=== PATIENT | male | born 1935 | race Caucasian/White ===

== ENCOUNTER 2019-01-07 11:28 | Outpatient (CLI) | payer MEDICARE ==
[~2019-01-07] VITALS: Ht 162.6 cm; Wt 69.4 kg
--- NOTE | ~2019-01-07 | HEMODYNAMI ---
PATIENT:KEIRY SULLIVAN MEDICAL RECORD: [id number] : 31 LOCATION:[facility] D.2125 ADMISSION DATE: 01/07/19 Generatedon:01/08/201914:01 Patient name: KEIRY SULLIVAN Patient #: [id number] SSN: : 1935 Date of study: 01/08/2019 Page: Of Hemodynamic Procedure Report Patient Data Patient Demographics Procedure consent was obtained First Name: KEIRY Gender: Male Last Name: LAURIE : 1935 Patient #: [id number] Age: 83 year(s) Race: Additional ID: [id number] Contact details Address: [address] [place] [address] State: [facility] Zip code: [address] Past Medical History Allergies Allergen Reaction Date Comments Reported Other allergy 01/08/2019 allergy medicines Admission Admission Data Admission Date: 01/07/2019 Admission Time: 11:28 Arrival Date: 01/08/2019 Arrival Time: 11:28 Admit Source: Emergency Insurance Payor: Medicare department [facility] #: [id number] Room #: D.2125 Height (in.): 64.17 BSA: 1.78 (m2) Height (cm.): 163 BMI: 27.1 (kg/m2) Weight (lbs.): 158.73 Weight (kg.): 72 Lab Results Lab Result Date: 01/08/2019 Lab Result Time: 0:00 Biochemistry Name Units Result Min Max BUN mg/dl 26 --(----)-* 7 18 Creatinine mg/dl 1.3 --(---*)-- 0.6 1.3 eGFR ml/min 56 *-(----)-- 90 120 NONAFRICAN CBC Name Units Result Min Max Hemoglobin g/dl 15 --(-*--)-- 13.5 17.5 Procedure Procedure Types Cath Procedure Diagnostic Procedure LHC LHC w/Coronaries Sedation Charges Moderate Sedation up to 30 minutes PCI Procedure Coronary Stent Coronary Stent Initial x2 Procedure Description Procedure Date Procedure Date: 01/08/2019 Procedure Start Time: 13:26 Procedure End Time: 13:53 Procedure Staff Name Function Lars Clarke MD Performing Physician Carito Rangel RT Monitor Azam Poole RN Nurse Ashley Montoya RT Scrub Procedure Data Cath Procedure Fluoroscopy Diagnostic fluoroscopy Total fluoroscopy Time: 10 time: 10 min min Diagnostic fluoroscopy Total fluoroscopy dose: dose: 1557 mGy 1557 mGy Contrast Material Contrast Material Type Amount (ml) Isovue 300 155 Entry Location Entry Primary Successful Side Size Upsize Upsize Entry Closure Chambers ccessful Closure Location (Fr) 1 (Fr) 2 (Fr) Remarks Device Remarks Radial Right 6 Fr Mechanical artery Short Compression Estimated blood loss: 5 ml Diagnostic catheters Device Type Used For End Catheter Placement DIAGNOSTIC Caulfield 110cm 5 Multi-vessel Fr catheter ([id number]) Angiography Procedure Complications No complications Procedure Medications Medication Administration Route Dosage Oxygen etCO2 Nasal cannula 2 l/min Lidocaine 2% added to field 20 Heparin Flush Bag added to field 2 bags (1000units/500ml NS) 0.9% NaCl I.V. 100 ml/hr Versed I.V. 1 mg Fentanyl I.V. 50 mcg Heparin Bolus I.V. 4000 units Versed I.V. 1 mg Fentanyl I.V. 50 mcg Hemodynamics Rest BSA: 1.78 (m2) O2 Consumption: Estimated: 207.49 (ml/min) O2 Consumption indexed : Estimated:116.57 (ml/min/m) Heart Rate: 78 (bpm) Snapshots Pre Cath Intra NCS Post Cath Vital Signs Time Heart Resp SPO2 etCO2 NIBP (mmHg) Rhythm Pain Sedation Rate (ipm) (%) (mmHg) Status Level (bpm) 12:57:13 76 21 94 0 139/80(108) NSR 0 (11) 10(A) , No pain 13:01:18 72 17 96 0 134/78(110) NSR 0 (11) 10(A) , No pain 13:05:22 73 18 96 0 136/82(104) NSR 0 (11) 10(A) , No pain 13:09:26 79 12 96 0 141/81(110) NSR 0 (11) 10(A) , No pain 13:13:30 72 14 98 0 146/85(119) NSR 0 (11) 10(A) , No pain 13:17:40 78 16 99 0 145/74(102) NSR 0 (11) 10(A) , No pain 13:21:47 74 15 99 0 151/78(122) NSR 0 (11) 10(A) , No pain 13:25:55 82 15 100 0 151/86(114) NSR 0 (11) 10(A) , No pain 13:30:07 83 15 94 0 121/76(95) NSR 0 (11) 9(A) , No pain 13:34:09 78 12 97 0 128/75(99) NSR 0 (11) 9(A) , No pain 13:38:13 73 14 95 0 135/71(100) NSR 0 (11) 9(A) , No pain 13:42:20 75 14 97 0 132/67(108) NSR 0 (11) 9(A) , No pain 13:46:26 76 13 97 0 132/72(100) NSR 0 (11) 9(A) , No pain 13:50:30 74 17 98 0 143/75(107) NSR 0 (11) 10(A) , No pain Medications Time Medication Route Dose Verified Delivered Reason Notes Effectiveness by by 12:56:17 Oxygen etCO2 2 Lars Buffie used for Nasal l/min Vince Poole RN procedure cannula 12:56:24 Lidocaine 2% added 20ml Lars Lars for local to vial Vince Clarke MD anesthetic field 12:56:30 Heparin Flush added 2 Lars Lars used for Bag to bags Vince Clarke MD procedure (1000units/500ml field NS) 12:56:39 0.9% NaCl I.V. 100 Lars Buffie Per physician ml/hr Vince Poole RN 13:24:34 Versed I.V. 1 mg Lars Buffie for sedation Vince Poole RN 13:24:39 Fentanyl I.V. 50 Lars Buffie for sedation mcg Vince Poole RN 13:29:54 Versed I.V. 1 mg Lars Buffie for sedation Vince Poole RN 13:29:58 Fentanyl I.V. 50 Lars Buffie for sedation mcg Vince Poole RN 13:32:45 Heparin Bolus I.V. 4000 Lars Buffie for verif ied units Vince Poole RN anticoagulation with dr clarke Procedure Log Time Note 12:48:42 Procedure Status Urgent Heart Cath (IP). 12:48:47 Ashley Montoya RT(R) sent for patient. Start room use. 12:48:48 Time tracking: Regular hours (M-F 7:00 - 5:00) 12:48:54 Plan of Care:Hemodynamics will remain stable., Cardiac rhythm will remain stable., Comfort level will be maintained., Respiratory function will remain adequate., Patient/ family verbilizes understanding of procedure., Procedure tolerated without complication., Recovers from procedure without complications.. 12:49:01 Patient received from Med II to CCL 2 Alert and oriented. Tansferred to table in Supine position. 12:49:02 Warm blankets applied, and nirav hugger turned on for patient comfort. 12:49:03 Correct patient and procedure confirmed by team. 12:49:04 ECG and BP/O2 sat monitors applied to patient. 12:50:28 H&P Date Dictated: 01/07/2019 Within 30 days and on chart.. 12:50:31 Pre-procedure instructions explained to patient. 12:50:35 Family in patients room. 12:50:38 Patient NPO since Midnight. 12:50:51 Patient allergic to Other allergyallergy medicines 12:50:55 Is the patient allergic to Iodine/contrast media? No. 12:51:06 Was the patient premedicated? Yes 12:51:08 Is patient on blood thinner?Yes 12:51:11 ACC The patient was administered the following blood thiners within the last 24 hours: ACCAspirin, ACCPlavix 12:54:56 Patient diabetic? No. 12:54:59 Previous problem with sedation/anesthesia? No ? 12:55:00 Snore? Yes 12:55:01 Sleep apnea? No 12:55:02 Deviated septum? No 12:55:03 Opens mouth fully? Yes 12:55:06 Sticks out tongue? Yes 12:55:08 Airway obstruction? No ? 12:55:15 Dentures? Yes partials in tight 12:55:18 Pre procedure: right dorsailis pedis pulse 1+ Palpable, but thready & weak; easily obliterated 12:55:20 Pre procedure: left dorsailis pedis pulse 1+ Palpable, but thready & weak; easily obliterated 12:55:23 Patient pain scale 0/10 ?. 12:55:33 IV patent on arrival in left antecubital with 0.9% NaCl at [facility]. 12:55:35 Lab results completed and on chart. 12:56:08 Vital chart was started 12:56:17 Oxygen 2 l/min etCO2 Nasal cannula was administered by Azam Poole RN; used for procedure; Verbal order read back and verified. 12:56:24 Lidocaine 2% 20ml vial added to field was administered by Lars Clarke MD; for local anesthetic; Verbal order read back and verified. 12:56:30 Heparin Flush Bag (1000units/500ml NS) 2 bags added to field was administered by Lars Clarke MD; used for procedure; Verbal order read back and verified. 12:56:39 0.9% NaCl 100 ml/hr I.V. was administered by Azam Poole RN; Per physician; Verbal order read back and verified. 13:04:04 Risk of Mortality: 8.1 13:04:09 Risk of blood transfusion: 10.4 13:04:16 Risk of ALBERT: 11.3 13:04:44 Right Radial & Right Groin area was prepped with chlora-prep and draped in sterile fashion 13:04:45 Alarms reviewed by R. N. 13:04:45 Sharps counted by scrub and verified by R.N. 13:05:07 Informed consent obtained and on chart 13:06:37 Admit Source: Emergency department 13:06:55 Arrival Date: 01/08/2019 11:28:00 AM 13:07:02 Insurance Payor : Medicare 13:07:12 Patient Weight : 158.73 lbs 13:07:17 Patient Height : 64.17 inches 13:09:07 Lab Result : BUN 26 mg/dl 13:09:07 Lab Result : eGFR NONAFRICAN 56 ml/min 13:09:07 Lab Result : Hemoglobin 15 g/dl 13:09:07 Lab Result : Creatinine 1.3 mg/dl 13:23:43 Physician arrived 13:23:43 --------ALL STOP TIME OUT------ 13:23:44 Final Timeout: patient, procedure, and site verified with staff and physician. All members of the team are in agreement. 13:23:45 Right Radial & Right Groin site verified by team. 13:23:55 Fire Safety Assessment: A--An alcohol-based skin anteseptic being used preoperatively., C--Open oxygen or nitrous oxide is being used., D--An ESU, laser, or fiber-optic light is being used. 13:23:59 Physical assessment completed. ASA score P 2 - A patient with mild systemic disease as per Lars Clarke MD. 13:24:04 Sedation plan: IV Moderate Sedation Medication:Versed, Fentanyl 13:24:12 3a) 45-59 Moderately reduced kidney function. 13:24:24 Maximum allowable contrast dose (3.7 X eGFR X 0.75)155 ml. 13:24:34 Versed 1 mg I.V. was administered by Azam Poole RN; for sedation; Verbal order read back and verified. 13:24:39 Fentanyl 50 mcg I.V. was administered by Azam Poole RN; for sedation; Verbal order read back and verified. 13:26:15 Use device set Radial Dx or PCI 13:26:17 ACIST Syringe (73438) opened to sterile field. 13:26:17 Medline Cath Pack ([id number]) opened to sterile field. 13:26:17 Bag Decanter (2002) opened to sterile field. 13:26:18 ACIST Hand Control (21023) opened to sterile field. 13:26:18 ACIST Manifold (04126) opened to sterile field. 13:26:18 Tegaderm 4 x 4 (1626W) opened to sterile field. 13:26:19 MBrace Wrist Support ([id number]) opened to sterile field. 13:26:21 SHEATH 6FR RAIN (5645720) opened to sterile field. 13:26:22 EMERALD Guide Wire (635-901) opened to sterile field. 13:26:26 Procedure started. 13:26:26 Full Disclosure recording started 13:26:38 Local anesthetic to right radial artery with Lidocaine 2% by Lars Clarke MD.INITIAL ACCESS ONLY 13:26:48 A 6 Fr Short sheath was inserted into the Right Radial artery 13:26:49 A DIAGNOSTIC Caulfield 110cm 5 Fr catheter ([id number]) was advanced over the wire and used for Multi-vessel Angiography. 13:27:41 LV hemodynamics recorded. 13:27:42 LV gram done using PEREYRA 13:27:59 Injector settings: Ml/sec: 5, Volume: 15, 13:28:04 EF : 30 % 13:28:22 LCA angiography performed. 13:28:48 Injector settings: Ml/sec: 3, Volume: 6, 13:29:14 RCA angiography performed. 13:29:17 Injector settings: Ml/sec: 3, Volume: 6, 13:29:38 Catheter removed. 13:29:54 Versed 1 mg I.V. was administered by Azam Poole RN; for sedation; Verbal order read back and verified. 13:29:58 Fentanyl 50 mcg I.V. was administered by Azam Poole RN; for sedation; Verbal order read back and verified. 13:30:39 Baseline sample Acquired. 13:31:33 Catheter removed. 13:32:20 CHOICE PT Extra Support 182cm wire ([id number]) opened to sterile field. 13:32:22 INFLATOR Merit BasixCompak (QE9082) opened to sterile field. 13:32:43 6 Fr AR 2 SH guide catheter was inserted over the wire 13:32:45 Heparin Bolus 4000 units I.V. was administered by Azam Poole RN; for anticoagulation; verified with dr clarke Verbal order read back and verified. 13:33:49 FIELDER XT 190cm guidewire ([id number]) opened to sterile field. 13:34:06 FIELDER wire advanced. 13:35:20 Inflate balloon Inflation number: 1 A EUPHORA 1.5 x 12 balloon ([id number]) was prepped and advanced across the Dist RCA 100, then inflated to 15 AUGUSTIN for 0:10 (min:sec) . 13:35:41 Inflation number: 2 The EUPHORA 1.5 x 12 balloon ([id number]) was reinflated across the Dist RCA , to 17 AUGUSTIN for 0:10 (min:sec) . 13:36:05 Inflation number: 3 The EUPHORA 1.5 x 12 balloon ([id number]) was reinflated across the Dist RCA , to 17 AUGUSTIN for 0:10 (min:sec) . 13:36:18 Balloon removed over the wire. 13:37:27 Inflate balloon Inflation number: 4 A EUPHORA 2.0 x 20 Balloon ([id number]) was prepped and advanced across the Dist RCA 100, then inflated to 17 AUGUSTIN for 0:10 (min:sec) . 13:37:35 Inflation number: 5 The EUPHORA 2.0 x 20 Balloon ([id number]) was reinflated across the Dist RCA , to 17 AUGUSTIN for 0:10 (min:sec) . 13:37:58 Inflation number: 6 The EUPHORA 2.0 x 20 Balloon ([id number]) was reinflated across the Dist RCA , to 21 AUGUSTIN for 0:10 (min:sec) . 13:38:16 Balloon removed over the wire. 13:38:23 ACC Pre-intervention XENA Flow is 1. 13:38:32 Pre PCI Site: [place] dRCA has 100% stenosis. 13:39:33 Place stent Inflation Number: 7 A DIAN RX 2.5 x 26 stent ([id number]) was prepped and advanced across the Dist RCA 100. The stent was deployed at 15 AUGUSTIN for 0:10 (min:sec) 0. 13:39:52 Stent catheter was removed intact over wire. 13:41:21 Place stent Inflation Number: 1 A DIAN RX 3.0 x 38 stent ([id number]) was prepped and advanced across the Mid RCA . The stent was deployed at 15 AUGUSTIN for 0:10 (min:sec) . 13:42:06 Stent catheter was removed intact over wire. 13:42:24 Post PCI Site: [place] mRCA has 0% stenosis. 13:42:30 ACC Post-intervention XENA Flow is 3. 13:42:34 Wire removed. 13:42:34 Guide catheter removed. 13:42:58 GUIDE 6FR XBLAD 3.5 catheter ([id number]) opened to sterile field. 13:43:17 6 Fr XBLAD 3.5 guide catheter was inserted over the wire 13:43:21 ACC Pre-intervention XENA Flow is 3. 13:43:31 Pre PCI Site: [place] mCirc has 90% stenosis. 13:43:43 CHOICE PT wire advanced. 13:46:00 Inflation number: 1 The EUPHORA 2.0 x 20 Balloon ([id number]) was reinflated across the Mid CX 90, to 9 AUGUSTIN for 0:10 (min:sec) 0. 13:46:16 Stent catheter was removed intact over wire. 13:47:32 Place stent Inflation Number: 2 A DIAN RX 2.5 x 18 stent ([id number]) was prepped and advanced across the Mid CX 0. The stent was deployed at 13 AUGUSTIN for 0:10 (min:sec) . 13:48:35 ZEPHYR REGULAR TR BAND (789662) opened to sterile field. 13:48:56 ACT drawn and resulted at 390 seconds. (normal therapeutic range 180-240 seconds). 13:49:07 Wire removed. 13:49:08 Guide catheter removed. 13:49:19 Sheath removed intact; hemostasis achieved with Mechanical Compression to the Right Radial artery. 13:49:44 Procedure ended.(Physican Out) 13:50:04 Post PCI Site: [place] mCirc has 0% stenosis. 13:50:55 Fluoroscopy time 10.00 minutes. 13:50:59 Fluoroscopy dose: 1557 mGy 13:50:59 Flurop Dose total: 1557 13:51:05 Dose Area Product 93587 mGy/cm. 13:51:23 Contrast amount:Isovue 300 155ml. 13:51:29 Sharps counted by scrub and verified by R.N. 13:51:32 Allen band inflated with 10cc of air. 13:51:36 Insertion/operative site no bleeding no hematoma. 13:51:41 Post right radial artery:stable 13:51:47 Post Procedure Pulses reassessed and unchanged 13:51:50 Post procedure rhythm: unchanged. 13:51:52 Estimated blood loss: 5 ml 13:51:54 Post procedure instruction explained to patient.Patient verbalizes understanding. 13:51:54 Patient needs reinforcement of post procedure teaching. 13:52:23 Procedure type changed to Cath procedure, Diagnostic procedure, LHC, [facility] w/Coronaries, Sedation Charges, Moderate Sedation up to 30 minutes, PCI procedure, Coronary Stent, Coronary Stent Initial x2 13:52:24 Procedure and supply charges have been captured, reviewed, submitted and are correct. 13:52:29 Procedure Complication : No complications 13:52:32 Vital chart was stopped 13:52:42 [facility] Findings: MVD- PCI performed (see procedure note) 13:52:46 Operative report dictated upon procedure completion. 13:52:46 See physician's report for complete and final results. 13:52:54 Report given to [facility]. 13:52:57 Patient transfered to [facility] with Stretcher. 13:53:24 Procedure ended. 13:53:24 Full Disclosure recording stopped 13:53:37 ACC-PCI Only Patient was given prescriptions, or instructed by Lars Clarke MD to start/continue the following medications upon discharge: Plavix 13:53:39 End room use (Document Last) Intervention Summary Intervention Notes Time ActionType Lesion and Equipment Used Action# Pressure Duration Attributes 13:35:20 Inflate Dist RCA EUPHORA 1.5 x 1 15 00:10 balloon 12 balloon ([id number]) 13:35:41 Reinflate Dist RCA EUPHORA 1.5 x 2 17 00:10 balloon 12 balloon ([id number]) 13:36:05 Reinflate Dist RCA EUPHORA 1.5 x 3 17 00:10 balloon 12 balloon ([id number]) 13:37:27 Inflate Dist RCA EUPHORA 2.0 x 4 17 00:10 balloon 20 Balloon ([id number]) 13:37:35 Reinflate Dist RCA EUPHORA 2.0 x 5 17 00:10 balloon 20 Balloon ([id number]) 13:37:58 Reinflate Dist RCA EUPHORA 2.0 x 6 21 00:10 balloon 20 Balloon ([id number]) 13:39:33 Place stent Dist RCA DIAN RX 2.5 x 7 15 00:10 26 stent ([id number]) 13:41:21 Place stent Mid RCA DIAN RX 3.0 x 1 15 00:10 38 stent ([id number]) 13:46:00 Reinflate Mid CX EUPHORA 2.0 x 1 9 00:10 balloon 20 Balloon ([id number]) 13:47:32 Place stent Mid CX DIAN RX 2.5 x 2 13 00:10 18 stent ([id number]) Device Usage Item Name Manufacture Quantity Catalog Number Hospital Part Current M inimal Lot# / Charge Number Stock Stock Serial# Code ACIST Syringe Acist 1 97720 547275 918487 249567 2 0 (52399Phonologics Medline Cath Medline 1 [id number] 919739 43044 860802 5 Pack ([id number]) Bag Decanter Microtek 1 2001S 258782 77654 643015 5 (2001S) Medical Inc. ACIST Hand Acist 1 44720 076939 463850 013793 5 Control Medical (80320) Systems Inc ACIST Manifold Acist 1 33820 922348 705676 964513 5 (08589) Medical Systems Inc Tegaderm 4 x 4 3M 1 1626W 314784 567825 883115 5 (1626W) MBrace Wrist Advanced 1 140-0250-00 372039 00422 131325 5 Support Vascular (692571550) Dynamics SHEATH 6FR Cardinal 1 5048346 912797 0900872 480387 5 RAIN (6742108) Health EMERALD Guide Cardinal 1 502-455 356947 776451 514104 5 Wire (641-719) Health DIAGNOSTIC Terumo 1 40-2184 629829 924133 335106 5 Caulfield 110cm 5 Fr catheter (737234) CHOICE PT [place] 1 [id number] 851155 487943 335705 5 Extra Support Scientific 182cm wire ([id number]) INFLATOR Merit Merit 1 KW7236 961572 358796 144322 1 5 [employer] (PY6103) FIELDER XT Rainey 1 [id number] 573864 53671 693757 5 190cm Vascular guidewire (SET812722) EUPHORA 1.5 x Medtronic 1 [id number] 692777 159732 845834 5 [id number] 12 balloon ([id number]) EUPHORA 2.0 x Medtronic 1 [id number] 830937 527511 387011 5 [id number] 20 Balloon (DWQ1016U) DIAN RX 2.5 x Medtronic 1 [id number] 283065 9125946 974901 5 [id number] 26 stent ([id number]) DIAN RX 3.0 x Medtronic 1 [id number] 160114 2239513 487542 5 [id number] 38 stent ([id number]) GUIDE 6FR Cardinal 1 [id number] 346734 962073 026749 1 0 XBLAD 3.5 Health catheter (87617587) DIAN RX 2.5 x Medtronic 1 [id number] 033292 7583978 314366 5 [id number] 18 stent ([id number]) ZEPHYR REGULAR Cardinal 1 681867 267617 4575372 966968 5 [facility] (091004) Signature Audit [place] Stage Time Signature Unsigned Intra-Procedure 01/08/2019 Carito Rangel 1:59:37 PM RT(R) Intra-Procedure 01/08/2019 Azam Poole RN 2:00:29 PM Intra-Procedure 01/08/2019 Lars Clarke 2:01:15 PM Signatures Performing Physician : Signature : Lars Clarke MD Date : Time : Monitor : Carito Rangel RT Signature : Date : Time : Nurse : Azam Poole RN Signature : Date : Time : [place] [address] [place] [address]
[2019-01-07 12:17] LABS: BASOPHILS 0.1 % (0-2); EOSINOPHILS 0.1 % (0-7); HEMATOCRIT 44.8 % (42.0-54.0); IMMATURE GRANULOCYTES 0.2 % (0-5); LYMPHOCYTES 7.2 % (15-50); MCH 31.1 pg (26.0-34.0); MCHC 33.5 g/dL (31.0-37.0); MCV 92.8 fL (80.0-100.0); MONOCYTES 6.6 % (2-11); NEUTROPHILS 85.8 % (40-80); PLATELET COUNT 195 10x3/uL (130-400); RBC 4.83 10x6/uL (4.20-6.10); RDW 13.7 % (11.5-14.5); WBC 8.6 10x3/uL (4.8-10.8)
[2019-01-07 12:27] LABS: APTT 28.1 SECONDS (22.8-39.4); INR 1.21 (0.85-1.17); PROTIME 14.7 SECONDS (11.6-15.0)
[2019-01-07 12:32] LABS: ALBUMIN 2.9 g/dL (3.4-5.0); ALKALINE PHOSPHATASE 76 U/L (46-116); ALT (SGPT) 13 U/L (10-68); BILIRUBIN - TOTAL 0.85 mg/dL (0.2-1.3); CALC OSMOLALITY 290 mosm/kg (275-300); CALCIUM 8.7 mg/dL (8.5-10.1); CARBON DIOXIDE 30.3 mmol/L (21.0-32.0); CHLORIDE - SERUM 107 mmol/L (98-107); CREATININE - SERUM 1.3 mg/dL (0.6-1.3); GLUCOSE 109 mg/dL (74-106); POTASSIUM - SERUM 4.2 mmol/L (3.5-5.1); PROTEIN - SERUM 6.2 g/dL (6.4-8.2); SODIUM 143 mmol/L (136-145); UREA NITROGEN 26 mg/dL (7-18); eGFR NON AFRICAN AMERICAN 56 mL/min (90-120)
[2019-01-07 12:48] LABS: CKMB 15.5 U/L (0.0-3.6); CREATINE KINASE 130 UL (21-232); MAGNESIUM - SERUM 1.8 mg/dL (1.8-2.4)
[2019-01-07 12:53] LABS: TROPONIN-I 6.454 ng/mL (0.000-0.060)
[2019-01-07 13:07] LABS: PRO BNP 48293 pg/mL (0-450)
[2019-01-07 18:53] LABS: CREATINE KINASE 137 UL (21-232)
[2019-01-07 18:55] LABS: TROPONIN-I 6.061 ng/mL (0.000-0.060)
[2019-01-07 20:00] VITALS: BP 142/70
--- NOTE | 2019-01-07 20:04 | NUR ---
RECIEVED REPORT FROM ALMA ANGELES FROM THE ER.
[2019-01-07] MEDS ORDERED: BAYER CHEWABLE81 MG PO (21:37)
[2019-01-07] MEDS ORDERED: METOPROLOL TART50 MG PO (21:39)
[2019-01-07] MEDS ORDERED: MYRBETRIQ25 MG PO (21:39)
[2019-01-07] MEDS ORDERED: K-DUR20 MEQ PO (21:40)
[2019-01-07] MEDS ORDERED: ALBUTEROL SULF8.5 GM INH (21:43)
[2019-01-08] VITALS (7 sets, daily range): BP systolic 98–146; BP diastolic 52–84; Ht 162.6 cm; Wt 69.4 kg
[2019-01-08 00:18] LABS: CKMB 10.3 U/L (0.0-3.6); CREATINE KINASE 104 UL (21-232); TROPONIN-I 5.699 ng/mL (0.000-0.060)
--- NOTE | 2019-01-08 00:42 | NUR ---
RESTING WITH EYES CLOSED, RESPERATIONS EVEN, NO S/S DISTRESS NOTED.
[2019-01-08 06:12] LABS: BASOPHILS 0 % (0-2); EOSINOPHILS 3.4 % (0-7); HEMATOCRIT 41.9 % (42.0-54.0); HEMOGLOBIN 13.4 g/dL (13.5-17.5); IMMATURE GRANULOCYTES 0.2 % (0-5); MCH 30.3 pg (26.0-34.0); MEAN PLATELET VOLUME 9.8 fL (7.4-10.4); MONOCYTES 10.3 % (2-11); NEUTROPHILS 70.1 % (40-80); PLATELET COUNT 179 10x3/uL (130-400); RBC 4.42 10x6/uL (4.20-6.10); RDW 13.9 % (11.5-14.5)
[2019-01-08 06:16] LABS: MCV 94.8 fL (80.0-100.0); WBC 4.8 10x3/uL (4.8-10.8)
[2019-01-08 07:11] LABS: ALBUMIN 2.5 g/dL (3.4-5.0); ALKALINE PHOSPHATASE 61 U/L (46-116); ALT (SGPT) 12 U/L (10-68); BILIRUBIN - TOTAL 0.75 mg/dL (0.2-1.3); CALC OSMOLALITY 285 mosm/kg (275-300); CALCIUM 8.2 mg/dL (8.5-10.1); CARBON DIOXIDE 32.6 mmol/L (21.0-32.0); CHLORIDE - SERUM 106 mmol/L (98-107); CKMB 7.4 U/L (0.0-3.6); CREATINE KINASE 78 UL (21-232); CREATININE - SERUM 1.1 mg/dL (0.6-1.3); GLUCOSE 88 mg/dL (74-106); POTASSIUM - SERUM 4.1 mmol/L (3.5-5.1); PROTEIN - SERUM 5.4 g/dL (6.4-8.2); SODIUM 142 mmol/L (136-145); UREA NITROGEN 25 mg/dL (7-18); eGFR NON AFRICAN AMERICAN 67 mL/min (90-120)
[2019-01-08 07:12] LABS: TROPONIN-I 4.835 ng/mL (0.000-0.060)
--- NOTE | 2019-01-08 07:25 | NUR ---
ASSESSMENT DONE. DENIES NEEDS
--- NOTE | 2019-01-08 10:14 | NUR ---
I have reviewed this patient and I concur with the Shift Assessment completed by the Licensed Practical Nurse today this shift.
--- NOTE | 2019-01-08 12:40 | NUR ---
TO CONTRACTING EXECUTIVE PER BED
--- NOTE | 2019-01-08 14:00 | NUR ---
RETURN FROM WIRE BASKET MAKER PER BED. TRBAND TO RT WRIST. NO HEMATOMA OR BLEEDING NOTED
--- NOTE | 2019-01-08 17:55 | NUR ---
FAMILY AT SIDE. 4CC AIR OUT OF BAND
--- NOTE | 2019-01-08 19:00 | NUR ---
PT RESTING IN BED TALKING TO FAMILY MEMBERS.VITALS WNL. Z BAND TO RIGHT WRIST.THE REMAINING 3ML OF AIR TAKEN OUT. NO SIGNS OF BLEEDING. DENIES PAIN OR NEEDS. CALL LIGHT IN REACH.
--- NOTE | 2019-01-08 20:00 | NUR ---
Z BAND REMOVED FROM RIGHT WRIST. A 2X2 AND TEGADERM PLACED OVER INCISION. NO SIGNS OF BLEEDING. DENIES PAIN OR NEEDS. CALL LIGHT IN REACH.
[2019-01-09] VITALS: BP 122/62
[2019-01-09 04:00] VITALS: BP 145/76
--- NOTE | 2019-01-09 07:48 | NUR ---
ASSESSMENT DONE. DENIES NEEDS
[2019-01-09 08:58] VITALS: BP 173/97
--- NOTE | 2019-01-09 09:51 | NUR ---
I have reviewed this patient and I concur with the Shift Assessment completed by the Licensed Practical Nurse today this shift.
--- NOTE | 2019-01-09 10:30 | HP ---
PATIENT: KEIRY SULLIVAN MEDICAL RECORD: [id number] ACCOUNT: [id number] LOCATION:[address] : 31 ADMISSION DATE: 01/07/19 PCP: No PCP HISTORY AND PHYSICAL EXAMINATION DIAGNOSES: 1. Non-Q-wave myocardial infarction. 2. Coronary artery disease. 3. Atrial fibrillation. 4. Shortness of breath, dyspnea on exertion. HISTORY OF PRESENT ILLNESS: Mr. Mascorro has no history of ischemic heart disease. He has been told in the past he has atrial fibrillation. He is on no blood thinners and no medications for this. He presented with shortness of breath and chest pain to an outlying hospital and found to have an elevated troponin of 5.0. He is not having any chest pain at this time. His EKG is atrial fibrillation, no acute ST-T changes. PHYSICAL EXAMINATION: CONSTITUTIONAL/GENERAL APPEARANCE: Well nourished, well developed, appears stated age. EYES: Lids and conjunctivae noninjected. No discharge. No pallor. ENT: Lips within normal limit. No cyanosis. No pallor. NECK: Carotid arteries, bilateral normal upstroke. No bruits. No thrills. No jugular venous pressure or distention. CERVICAL LYMPH NODES: Nontender. Nonenlarged. THYROID: Not enlarged. No nodules. CARDIOVASCULAR: Precordial exam, nondisplaced. No heaves or pericardial thrills. Rate and rhythm, regular. Heart sounds, normal S1, normal S2. No S3, no gallop, no rub. Systolic murmur, not heard. Diastolic murmur, not heard. RESPIRATORY: Respiratory effort, unlabored. Normal curvature. No thoracic deformity. No chest wall tenderness. Percussion, resonant. Auscultation, clear. No wheezes, no rales, no rhonchi. ABDOMEN: Soft, nondistended, nontender. No abdominal pain, no vomiting and normal appetite. MUSCULOSKELETAL: No joint tenderness, normal gait, normal tone. SKIN: Warm and dry. OVERALL IMPRESSION: Non-Q-wave myocardial infarction. At this time, we will institute medical management with beta chuck and long-acting nitrate, aspirin, Plavix, proceed with coronary angiography in the a.m. TRANSINT:[id number] Voice Confirmation ID: [id number] DOCUMENT ID: [id number] JOSE PEDRAZA MD at 1030 CC: [id number] DICTATION DATE: 01/07/19 1217 PANEL CUTTER: 01/07/19 1226 [address] [place] [id number] [place] [id number]
--- NOTE | 2019-01-09 10:30 | EC ---
PATIENT:KEIRY SULLIVAN DATE OF SERVICE: 01/07/19 SEX: M MEDICAL RECORD: [id number] DATE OF : 31 LOCATION:D.M2 D.212 AGE OF PATIENT: 83 ADMISSION DATE: 01/07/19 REFERRING PHYSICIAN: INTERPRETING PHYSICIAN: JOSE CLARKE MD ECHOCARDIOGRAM REPORT ECHO CHARGES 4 ECHO COMPLETE Date: 01/07/19 CLINICAL DIAGNOSIS: ELEVATED TROPONIN ECHOCARDIOGRAPHIC MEASUREMENTS (adult normal given) AC root (d.<3.7cm) 3.3 cm LV Septum d (<1.2 cm> 1.4 cm Valve Excursion 1.6 cm LV Septum (systole) 1.7 cm Left Atria (s.<4.0cm> 4.0 cm LVPW d(<1.2cm) 1.4 cm RV (d.<2.3cm) 4.2 cm LVPW (sytole) 1.8 cm LV diastole(<5.6CM) 5.4 cm MV E-F(>70mm/sec) cm LV systole 3.8 cm LVOT Diameter 2.1 cm MV exc.(>10mm) 1.6 cm Est.ejection fraction (50-75%) % DOPPLER: LVIT cm/sec A 28.0 cm/sec E 97.0 cm/sec LA cm/sec RVSP 57 mmHg LVOT 100 cm/sec AOP1/2T 593 m/s Asc. Ao 146 cm/sec RVOT 83 cm/sec RA cm/sec PA 101 cm/sec AV Gradient Peak 8.49 mmHg AV Mean 4.51 mmHg AV Area 2.3 cm MV Gradient Peak 6.28 mmHg MV Mean 1.98 mmHg MV Area cm COMMENTS: [place]: 2 ANGEL REDDY Triple Valve Tester: 1 Dr. Clarke TAPE# PACS Pericardial Effusion N DATE OF SERVICE: FINDINGS: 1. Left ventricular chamber size is within normal limits. Left ventricular systolic function is normal at 50-55%. 2. Left atrium is enlarged at 4.0 cm. Right atrium and right ventricular chamber sizes are moderately dilated. 3. Valvular structures have normal structure and motion. 4. Doppler interrogation reveals mild aortic insufficiency, moderate mitral regurgitation, moderate tricuspid regurgitation, no other valvular insufficiency ECHOCARDIOGRAM REPORT [id number] KEIRY SULLIVAN or stenosis. Pulmonary systolic pressure is estimated at 57 mmHg. 5. No evidence of pericardial effusion or left ventricular thrombus. TRANSINT:[id number] Voice Confirmation ID: [id number] DOCUMENT ID: [id number] JOSE CLARKE MD at 1030 CC: [id number] DICTATION DATE: 01/07/19 1632 SOFTWARE QUALITY ASSURANCE ENGINEER: 01/08/19 0130 REG [facility] [address] [id number]
[2019-01-09] MEDS ORDERED: PLAVIX75 MG PO (11:23)
[2019-01-09] MEDS ORDERED: PRAVACHOL40 MG PO (11:23)
--- NOTE | 2019-01-09 12:16 | NUR ---
DC AND RX GIVEN TO PT
--- NOTE | 2019-01-09 13:28 | NUR ---
DC HOME PER PERSONAL CAR
--- NOTE | 2019-01-09 13:29 | OP ---
PATIENT NAME: KEIRY SULLIVAN MEDICAL RECORD: [id number] :31 LOCATION:D.M2 D.2125 ADMISSION DATE: SURGEON: JOSE PEDRAZA MD DATE OF OPERATION: 01/08/2019 PROCEDURES: 1. PTCA stent RCA chronic total occlusion. 2. PTCA stent of left circumflex. 3. Left heart catheterization. 4. Selective coronary angiography. 5. Left ventriculogram. INDICATION: Non-Q-wave myocardial infarction and coronary artery disease. PROCEDURE IN DETAIL: After informed consent was obtained and after a detailed description of the risks, benefits as well as alternative therapies, the patient elected to proceed with angiogram and angioplasty. The right radial area was prepped and draped in normal sterile fashion. Right radial artery was cannulated via modified Seldinger technique with placement of 6-Estonian sheath. All catheters exchanged through this sheath. FINDINGS: The left ventriculogram was performed in standard 30-degree PEREYRA view reveals global hypokinesis, ejection fraction in the 30% range. SELECTIVE CORONARY ANGIOGRAPHY: 1. Left main is with no significant angiographic disease. 2. Left anterior descending has moderate irregularities, but no flow-limiting stenosis. 3. The left circumflex has 99% stenosis in the mid vessel. 4. Right coronary artery has 100% chronic total occlusion in the mid distal vessel. PTCA STENT OF THE RCA: We were able to traverse the total occlusion with a 1.5 x 20 balloon. Stenting with a 2.5 x 18 and 3.0 x 38 mm Wilmer stent. Result was 0% residual stenosis with judaism of XENA 3 flow. PTCA STENT OF THE LEFT CIRCUMFLEX: The stent used 2.5 x 18 mm [place]. Result was 0% residual stenosis. OVERALL IMPRESSION: Successful PTCA stent of the RCA and left circumflex going from 99% to 100% initial stenosis to 0% residual stenosis. TRANSINT:[id number] Voice Confirmation ID: [id number] DOCUMENT ID: [id number] JOSE PEDRAZA MD at 1329 CC: [id number] DICTATION DATE: 01/08/19 1354 ORACLE APPLICATION ARCHITECT: 01/08/19 1402 REG [facility] [address] [place] [address]
--- NOTE | 2019-01-20 11:40 | DS ---
PATIENT:KEIRY SULLIVAN :31 MEDICAL RECORD: [id number] DISCHARGE SUMMARY ADMISSION DATE: 01/07/19 DISCHARGE DATE: 01/09/19 DATE OF SERVICE: 01/09/2019 DIAGNOSES: 1. Non-Q-wave myocardial infarction. 2. Coronary artery disease. 3. Percutaneous transluminal coronary angioplasty and stent of left circumflex and right coronary artery this admission. HISTORY: Mr. Sullivan presents with anginal symptomatology, non-Q-wave myocardial infarction, found to have total occlusion of the RCA, 99% stenosis of the left circumflex, underwent successful PTCA and stent of both territories, was discharged home with the addition of aspirin, Plavix, metoprolol to the medical regimen as well as Pravachol. Will follow up with [facility] in 1 month. TRANSINT:[id number] Voice Confirmation ID: [id number] DOCUMENT ID: [id number] JOSE PEDRAZA MD at 1140 CC: [id number] DICTATION DATE: 01/09/19 1032 MANHOLE STRIPPER: 01/10/19 0220 DEP CLI 01/09/19 [facility] [address] [place] [address]
== END 2019-01-09 13:29 | disposition home or self-care (01) ==
LOC: D.CATH 11:28 → D.M2 11:28 → D.ER 11:28 → D.M2 12:39 → EDSTATUS 13:56 → D.CATH 01-09 13:29
PROVIDERS: Family Medicine; ATTEND Internal Medicine Interventional Cardiology
DX: I21.4 Non-ST elevation (NSTEMI) myocardial infarction (principal); I25.10 Atherosclerotic heart disease of native coronary artery without angina pectoris; I48.91 Unspecified atrial fibrillation; R06.02 Shortness of breath
CPT/HCPCS: C9600 ×2; 93458